=== PATIENT | female | born 1955 | race Caucasian/White ===

== ENCOUNTER → 2016-07-27 | Outpatient (CLI) | payer OTHER ==
[~2016-07-27] VITALS: Ht 160 cm; Wt 64.4 kg
[~2016-07-27] MED LIST: ASPI81TA85 PO; CALCTAB7 PO; D-101000 PO; FISH100049 PO; GLUC1CAP10 PO; LEVO125T3 PO; LOVA20TA2 PO; MULT1TAB18 PO; NS 1,000 ML IV ONE; PHEN1TAB26 PO; PROPOFOL 200 MG/20 ML VIAL As Ordered ONE
--- NOTE | 2016-07-27 10:51 | ROOR ---
Patient Name: Soniya Griffin Procedure Date: 07/27/2016 10:31 AM Date of : 1955 Age: 60 Room: [facility] Gender: Female Note Status: Finalized Procedure: Colonoscopy Indications: Screening in patient at increased risk: Colorectal cancer in father 60 or older Providers: Scooter KAHN MD Referring MD: DONNA ROBLES Requesting Provider: Medicines: Monitored Anesthesia Care Complications: No immediate complications. Procedure: Pre-Anesthesia Assessment: - The heart rate, respiratory rate, oxygen saturations, blood pressure, adequacy of pulmonary ventilation, and response to care were monitored throughout the procedure. The Colonoscope was introduced through the anus and advanced to the terminal ileum, with identification of the appendiceal orifice and IC valve. The colonoscopy was performed without difficulty. The patient tolerated the procedure well. The quality of the bowel preparation was good. Findings: The perianal and digital rectal examinations were normal. (Exam: Complete, Prep: Good or Excellent.) A diminutive polyp was found in the hepatic flexure. The polyp was sessile. The polyp was removed with a jumbo cold forceps. Resection and retrieval were complete. Multiple medium-mouthed diverticula were found in the left colon and right colon. The exam was otherwise without abnormality on direct and retroflexion views. Impression: - One diminutive polyp at the hepatic flexure, removed with a jumbo cold forceps. Resected and retrieved. - Mild diverticulosis. - The examination was otherwise normal on direct and retroflexion views. Recommendation: - Repeat colonoscopy in 5 years for surveillance. Scooter Kahn MD Scooter KAHN MD 07/27/2016 10:50:54 AM This report has been signed electronically. Number of Addenda: 0 Note Initiated On: 07/27/2016 10:31 AM Estimated Blood Loss: Estimated blood loss: none.
[2016-07-27 11:10] VITALS: BP 105/63
== END ==
LOC: M OPP 09:10
PROVIDERS: ATTEND Internal Medicine Gastroenterology
DX: Z12.11 Encounter for screening for malignant neoplasm of colon (principal); Z80.0 Family history of malignant neoplasm of digestive organs; D12.3 Benign neoplasm of transverse colon; K57.30 Diverticulosis of large intestine without perforation or abscess without bleeding; G40.909 Epilepsy, unspecified, not intractable, without status epilepticus; E03.9 Hypothyroidism, unspecified; H91.91 Unspecified hearing loss, right ear; Z79.82 Long term (current) use of aspirin; Z79.899 Other long term (current) drug therapy; Z88.8 Allergy status to other drugs, medicaments and biological substances; Z88.2 Allergy status to sulfonamides

== ENCOUNTER → 2016-11-16 | Outpatient (REF) | payer OTHER ==
[~2016-11-16] MED LIST changes: -LEVO125T3 PO; +LEVO125T4 PO; -NS 1,000 ML IV ONE; -PROPOFOL 200 MG/20 ML VIAL As Ordered ONE
== END ==
LOC: M SFHCWAGY 09:10
PROVIDERS: ATTEND Nurse Practitioner Women's Health
DX: Z12.4 Encounter for screening for malignant neoplasm of cervix (principal)

== ENCOUNTER → 2016-11-16 | Outpatient (CLI) | payer OTHER ==
--- NOTE | 2016-11-16 09:31 | REPMRS ---
Patient History The patient states she had a clinical breast exam in 11/22 Patient is postmenopausal and had first child at age 29. Family history of colorectal cancer in father at age 50 or over and prostate cancer in father at age 50 or over. Digital Woman Screen Mammo: November 16, 2016 - Exam #: [id number] Bilateral CC and MLO view(s) were taken. Technologist: Gianna Das, Technologist Prior study comparison: November 05, 2015, digital woman screen mammo performed at [facility]. November 01, 2014, digital woman screen mammo performed at [facility]. October 30, 2013, digital woman screen mammo performed at [facility]. FINDINGS: There are scattered fibroglandular densities. There has been no change in the appearance of the mammogram from the prior studies. There is a mild amount of scattered fibroglandular density which is fairly symmetric. There is no interval development of dominant mass, architectural distortion, or clustered microcalcification suggestive of malignancy. ASSESSMENT: BI-RADS/ACR category 1 mammogram. Negative. Recommendation Routine screening mammogram in 1 year (for women over age 40). This mammogram was interpreted with the aid of an FDA-approved computer-aided dectection system. Electronically Signed By: Jerome Lund MD 11/16/16 3168
== END ==
LOC: M WHC 08:01
PROVIDERS: ATTEND Nurse Practitioner Women's Health
DX: Z12.31 Encounter for screening mammogram for malignant neoplasm of breast (principal); Z80.0 Family history of malignant neoplasm of digestive organs; Z78.0 Asymptomatic menopausal state

== ENCOUNTER → 2017-11-17 | Outpatient (REF) | payer OTHER ==
[2017-11-19 14:14] LABS: HPV HYBRID CAPTURE II Negative (Negative)
== END ==
LOC: M SFHCWAGY 09:39
DX: Z12.4 Encounter for screening for malignant neoplasm of cervix (principal)

== ENCOUNTER → 2017-11-17 | Outpatient (CLI) | payer OTHER | LOC: M WHC 08:52 | DX: Z12.31 Encounter for screening mammogram for malignant neoplasm of breast (principal); M85.80 Other specified disorders of bone density and structure, unspecified site ==

== ENCOUNTER → 2018-11-18 | Outpatient (CLI) | payer OTHER ==
--- NOTE | 2018-11-18 10:24 | REPMRS ---
Patient History The patient states she had a clinical breast exam in 11/2018. Patient is postmenopausal and had first child at age 29. Family history of colorectal cancer at age 50 or over and prostate cancer at age 50 or over in father. No Hormone Replacement Therapy 3D TOMOSYNTHESIS WAS PERFORMED. [facility] lifetime risk for breast cancer is 8.0%. Digital Woman Screen Mammo: November 18, 2018 - Exam #: [id number] Bilateral CC and MLO view(s) were taken. Technologist: Melody Green, Technologist Prior study comparison: November 17, 2017, bilateral digital woman screen mammo performed at [facility]. November 16, 2016, digital woman screen mammo performed at [facility]. FINDINGS: There are scattered fibroglandular densities. There has been no change in the appearance of the mammogram from the prior studies. There is a mild amount of residual fibroglandular tissue which is fairly symmetric. There is no interval development of dominant mass, architectural distortion, or clustered microcalcification suggestive of malignancy. Assessment: BI-RADS/ACR category 1 mammogram. Negative Mammogram. Recommendation Routine screening mammogram in 1 year (for women over age 40). This mammogram was interpreted with the aid of an FDA-approved computer-aided dectection system. Electronically Signed By: Feroz Matthews MD 11/18/18 1024
== END ==
LOC: M WHC 09:30
PROVIDERS: ATTEND Nurse Practitioner Women's Health
DX: Z12.31 Encounter for screening mammogram for malignant neoplasm of breast (principal); Z78.0 Asymptomatic menopausal state; Z80.0 Family history of malignant neoplasm of digestive organs

== ENCOUNTER → 2019-11-24 | Outpatient (CLI) | payer OTHER ==
[~2019-11-24] MED LIST changes: -ASPI81TA85 PO; +ASPI81TA86 PO; +CALC-211 PO; -CALCTAB7 PO
--- NOTE | 2019-11-24 09:19 | REPMRS ---
Patient History The patient states she had a clinical breast exam in November 2019.Family history of colorectal cancer at age 50 or over and prostate cancer at age 50 or over in father. No Hormone Replacement Therapy Digital Woman Screen Mammo: November 24, 2019 - Exam #: [id number] Bilateral CC and MLO view(s) were taken. Technologist: Gilda Bolton, Technologist Prior study comparison: November 18, 2018, bilateral digital woman screen mammo performed at [facility]. November 17, 2017, bilateral digital woman screen mammo performed at [facility]. November 16, 2016, digital woman screen mammo performed at [facility]. FINDINGS: The breast tissue is almost entirely fat. The [employer] volumetric breast density category is: A. There has been no change in the appearance of the mammogram from the prior studies. There is no interval development of dominant mass, architectural distortion, or grouped microcalcification typical of malignancy. 3-D tomosynthesis shows no additional findings. Assessment: BI-RADS/ACR category 1 mammogram. Negative Mammogram. Recommendation Routine screening mammogram of both breasts in 1 year (for women over age 40). This patient's Lifetime Breast Cancer RIsk is estimated at 7.6 %. This mammogram was interpreted with the aid of an FDA-approved computer-aided dectection system. Electronically Signed By: Jerome Lund MD 11/24/19 0918
--- NOTE | 2019-12-01 15:49 | DEXA ---
AP SPINE L1 - L4 1.018 -1.4 0.2 LT FEMUR TOTAL 0.822 -1.5 -0.2 LT NECK 0.732 -2.2 -0.7 RT FEMUR TOTAL 0.754 -2.0 -0.8 RT NECK 0.663 -2.7 -1.2 TOTAL BODY TOTAL OTHER COMMENTS: There is low bone density of the spine and hips. There is low bone density of the left hip. There is osteoporosis of the right hip. The increased density of the spine does not represent a significant change. The decreased density of the left hip does represent a significant change. The decreased density of the right hip does represent a significant change. The density of the spine is increased 2.0% since the initial exam on 10/08/2009. The increased 0.6% since the most recent exam on 11/17/2017. The density of the left hip has decreased 7.1% since the initial exam on 10/08/2009. The density of the left hip has decreased 4.4% since the most recent exam on 11/17/2017. The density of the right hip has decreased 14.4% since the initial exam on 10/08/2009. The density of the right hip has decreased 8.3% since the most recent exam on 11/17/2017. FOLLOW-UP: Recommendation for the next bone density exam: 2 years. MIRTHA
== END ==
LOC: M WHC 08:07
PROVIDERS: ATTEND Nurse Practitioner Women's Health
DX: Z12.31 Encounter for screening mammogram for malignant neoplasm of breast (principal); Z80.0 Family history of malignant neoplasm of digestive organs; M85.852 Other specified disorders of bone density and structure, left thigh; M81.0 Age-related osteoporosis without current pathological fracture

== ENCOUNTER → 2020-05-22 | Outpatient (CLI) | payer OTHER ==
--- NOTE | 2020-05-22 20:04 | REP ---
INDICATION: BILATERAL KNEE PAIN. COMPARISON: 08/04/2019 right knee. TECHNIQUE: There are three views of each knee. FINDINGS: Right knee: There is joint space narrowing of the medial compartment with eburnation of the 0 posing cortical surfaces. The lateral compartment is unremarkable. There is osteophytic growth in the patellofemoral compartment superiorly. There is no joint effusion. Left knee: There is marked joint space narrowing of the medial compartment with eburnation of the opposing cortical surfaces. There is osteophytic growth at the patello femoral joint superiorly. There is no joint effusion. IMPRESSION: Right knee: The findings are compatible with osteoarthritis. There is no significant interval change. Left knee: The findings are compatible with osteoarthritis. <Electronically signed by Feroz Anderson > 05/22/201999
== END ==
LOC: M SOG 05-21 15:16
PROVIDERS: ATTEND Family Medicine
DX: M13.862 Other specified arthritis, left knee (principal)

== ENCOUNTER 2020-08-14 07:50 | Outpatient (RCR) | payer OTHER ==
[2020-08-14] MEDS ORDERED: ALEN35TA54 PO (13:55)
[2020-08-14] MEDS ORDERED: KP F1200 PO (13:55)
[2020-08-14] MEDS ORDERED: D31000CA4 PO (13:55)
[2020-08-14] MEDS ORDERED: COQ-100C5 PO (13:55)
[2020-08-14] MEDS ORDERED: ASPI81TA26 PO (13:55)
[2020-08-14] MEDS ORDERED: VITMTA PO (13:55)
[2020-08-14] MEDS ORDERED: curamin PO (13:57)
== END 2020-09-04 ==
LOC: M PT 07:50
PROVIDERS: ATTEND Orthopaedic Surgery Adult Reconstructive Orthopaedic Surgery
DX: M17.0 Bilateral primary osteoarthritis of knee (principal)

== ENCOUNTER → 2020-08-17 | Outpatient (CLI) | payer OTHER ==
[~2020-08-17] MED LIST changes: +ALEN35TA54 PO; +ASPI81TA26 PO; +COQ-100C5 PO; +D31000CA4 PO; +KP F1200 PO; +VITMTA PO; +curamin PO
--- NOTE | 2020-08-17 11:58 | REP ---
INDICATION: BILATERAL PRIMARY OSTEOARTHRITIS OF LEFT KNEE. COMPARISON: No comparison CT study. Comparison knee radiographs May 22, 2020.. TECHNIQUE: The study was acquired according to the parameters of the Targeted Growth CT acquisition protocol. Helical scanning is acquired. Axial and multiplanar re-formation coronal and sagittal images are included. Study protocol includes and acquisition of the hip, knee, and ankle on the left side. Acquisition protocol includes a placement of the motion bar as specified. FINDINGS: At the hip acquisition, there is tendon insertion site spurring at the greater trochanter and mild osteoarthritic spurring at the symphysis pubis. Left hip joint space is preserved. Alignment is felt to be normal. Head neck junction morphology is unremarkable. No bony destructive lesion is seen. Left knee acquisition images demonstrate moderate to advanced 3 compartment osteoarthritis at the left knee. There are large medial and lateral femoral condyle osteophytes. There is moderate osteoarthritic spurring in the patellofemoral compartment as well. There are reactive sclerotic changes and some flattening of the medial femoral condyle and medial tibial plateau. No bony destructive lesion is seen. There is subcortical cyst formation beneath the tibial spines. In addition, there is a well corticated marrow containing bone density in the soft tissues posterior and medial to the fibular head, posterior to the tibial plateau laterally. This measures 15 x 14 x 9 mm. This could conceivably be a loose body associated with a periarticular cyst. Lastly there is a fairly large Howard's cyst in the posteromedial popliteal soft tissues. A small suprapatellar joint effusion is noted. The ankle acquisition images show a small Achilles and a moderate-sized plantar calcaneal spur. There is subcortical cyst in the medial cuneiform. There is a small exostosis projecting laterally from the lateral surface of the anterior talus. Ankle mortise is intact. Minimal tibiotalar spurring is seen. IMPRESSION: Osteoarthritic changes as noted above. <Electronically signed by Jerome Lund > 08/17/20 1097
== END ==
LOC: M RAD 10:49
PROVIDERS: ATTEND Orthopaedic Surgery Adult Reconstructive Orthopaedic Surgery
DX: M17.2 Bilateral post-traumatic osteoarthritis of knee (principal)

== ENCOUNTER → 2020-08-21 | Outpatient (CLI) | payer OTHER | LOC: M LABSMTC 11:31 | PROVIDERS: ATTEND Anesthesiology | DX: Z01.818 Encounter for other preprocedural examination (principal); Z11.52 Encounter for screening for COVID-19 ==

== ENCOUNTER 2020-08-26 06:11 | Inpatient (IN) | payer OTHER, MEDICARE ==
[2020-08-26] VITALS (7 sets, daily range): BP systolic 93–106; BP diastolic 54–68
[~2020-08-26] VITALS: Ht 152.4 cm; Wt 68.0 kg
[~2020-08-26 06:11] MED LIST changes: +ACETAMINOPHEN 500 MG TAB PO ONE; +NAPROXEN 250 MG TAB PO ONE; +NS 1,000 ML IV ONE; +PREGABALIN 25 MG CAP (LYRICA) PO ONE; +TRANEXAMIC ACID INJection 1,000 MG in NS 50 ML IV ONE; +ceFAZolin SOD 2 GM in IV 1 EA IV ONE; +dexameTHASONE 4 MG/ML 1ML VIAL (J1100 PER 1MG) IV ONE
[2020-08-26] MEDS ORDERED: ROPIVA 125MG/EPINEPH 0.25MG/CLONID 40MCG/KETOR 15MG IN NS 50ML SYRINGE PA ONE (07:00)
[2020-08-26] MEDS ORDERED: MIDAZOLAM INJ 2MG/2ML VIAL (J2250 PER 1MG) As Ordered ONE (07:03)
[2020-08-26] MEDS ORDERED: fentaNYL 100 MCG/2 ML INJECTION (J3010) As Ordered ONE (07:04)
[2020-08-26] MEDS ORDERED: LIDOCAINE 2% 100MG/5ML SDV (FOR ANES.) As Ordered ONE (07:05)
[2020-08-26] MEDS ORDERED: ROCURONIUM BROMIDE 50 MG/5 ML VIAL As Ordered ONE (07:06)
[2020-08-26] MEDS ORDERED: TRANEXAMIC ACID 100 MG/ML 10ML VIAL As Ordered ONE ×2 (07:11→07:35)
[2020-08-26] MEDS ORDERED: LR 1,000 ML IV ONE (07:20)
[2020-08-26] MEDS ORDERED: PHENYLephrine 500MCG 5ML (100MCG/ML) SYRINGE As Ordered ONE ×2 (07:48→09:31)
[2020-08-26] MEDS ORDERED: ePHEDrine SULFATE 25 MG/5 ML(5MG/ML) SYRINGE As Ordered ONE (07:48)
[2020-08-26] MEDS ORDERED: propofoL 200 MG/20 ML VIAL As Ordered ONE (07:49)
[2020-08-26] MEDS: NAPROXEN 250 MG TAB PO SCH ×2 (09:00→21:02)
[2020-08-26] MEDS ORDERED: ONDANSETRON 4MG/2ML VIAL As Ordered ONE (09:05)
[2020-08-26] MEDS ORDERED: SUGAMMADEX SODIUM 500 MG/5 ML VIAL (BRIDION) As Ordered ONE (09:05)
[2020-08-26] MEDS ORDERED: HYDROmorphone HCL 2 MG/ML 1ML VIAL (J1170) As Ordered ONE (09:23)
[2020-08-26] MEDS ORDERED: METOCLOPRAMIDE INJ 10MG/2ML VIAL (J2765 PER 1) As Ordered ONE (09:24)
[2020-08-26] MEDS ORDERED: ONDANSETRON 4MG/2ML VIAL IV PRN ×2 (10:00→10:40)
[2020-08-26] MEDS ORDERED: oxyCODONE 5MG TAB PO PRN ×3 (10:00→10:45)
[2020-08-26] MEDS ORDERED: fentaNYL 100 MCG/2 ML INJECTION (J3010) IV PRN (10:00)
[2020-08-26] MEDS ORDERED: HYDROMORPHONE HCL 0.5 MG/ 0.5 ML SYRINGE (J1170 PER 1) IV PRN (10:00)
[2020-08-26] MEDS ORDERED: LR 1,000 ML IV SCH ×3 (10:00→16:45)
[2020-08-26] MEDS ORDERED: SENNA 8.6 MG TAB (SENOKOT) PO PRN (10:40)
[2020-08-26] MEDS ORDERED: traMADol 50 MG TAB PO PRN (10:40)
--- NOTE | 2020-08-26 10:50 | ROOPDOC ---
[facility] Report Of Operation Report of Operation DATE OF PROCEDURE: 08/26/20 PREPROCEDURE DIAGNOSES: Left knee osteoarthritis POSTPROCEDURE DIAGNOSES: Left knee osteoarthritis PROCEDURE: Alvaro left total knee [place] triathlon system Press-fit size 3 left femur, CR Press-fit tibial tray size 2 9 mm CS polyethylene 35mm press-fit patellar polyethylene component SURGEON: Misti Guerrero MD BATTERY CONTAINER TESTER ALUMINUM: JULIAN assist ANESTHESIA: GA ESTIMATED BLOOD LOSS: Approximately 150 mL. COMPLICATIONS: No known. REMARKS: Patient received 2 g of Ancef IV prior to surgery. Patient received 1 g of IV tranexamic acid, Prior to incision. PROCEDURE NOTE: Patient was seen in the preoperative area. She was found to be grossly neurovascular intact to the left foot and ankle. She denied any significant change in her past medical history. DESCRIPTION OF PROCEDURE: The patient was brought into the operating room and a surgical pause was carried out. She was then transferred to the operating room table and a general anesthetic was induced. After the general anesthetic was induced, the patient was appropriately positioned with appropriate padding. The operative lower extremity underwent a chlorhexidine brush followed by 2 times alcohol swab, followed by hydrogen peroxide White and then 2 times sterile chlorhexidine washes. A standard drape was sterilely applied. The [employer] leg holde r was attached to the bed in a sterile manner. The foot reinoso was also applied to the patient using a padded boot and Coban. The surgical safety checklist and pars was then carried out. 2 stab hole incisions were made over the anteromedial tibial crest, approximately 4 fingerbreadths below the tibial tubercle. The 2 tibial array pins were placed. An incision was made midline. This was carried down through skin and subcutaneous tissue. The medial arthrotomy was completed and joint fluid was suctioned. Bleeders were controlled with electrocautery. The knee joint was exposed with soft tissue releases as appropriate. The fat pad was excised with electrocautery. The medial femoral condylar array pins were placed. The tibial and femoral tracker pins were placed. The tibial and femoral arrays were placed. The range of motion of the hip center was completed followed by registration of the knee joint using the [employer] robotic system. Once registration was complete. Osteophytes were removed with a rongeur and it curved osteotome as needed. Soft tissue balancing using the [employer] robotic system was then carried out. The preoperative plan was adjusted as necessary. The Alvaro rule out was then brought in and appropriately registered. The cuts were made using the 90 blade, followed by cuts using the straight blade. The [facility] knee reinoso retractor system was utilized to protect the soft tissues and allow access to the knee joint during this procedure. Part. Once all the cuts had been appropriately made, the bone pieces were removed. The menisci were then removed. A curved osteotome was used to remove posterior osteophytes. With the help of a lamina rn ed for access. Tibial trials and femoral trials were then placed. The leg was brought into near extension. Using towel clips. The patella depth was measured, followed by a freehand cut using a sagittal saw. The depth of the remaining patella was measured again and was found to be in appropriate resection. A patellar clamp was applied with the appropriate sizing. This was reamed for a press-fit patella. The trial was placed and found to have good fit. The tibial tray was then secured in appropriate rotation and pinned. The keel punch was impacted. The 4. press-fit drill guide was placed and the guide was reamed for the 4 holes. The 2 CR lug holes were drilled. The knee was then taken through a range of motion and found to be stable. This w as confirmed with the [facility] Smart robotics program The components were removed and the ADENIKE local anesthetic was instilled in the standard fashion. The bone surfaces and the wound were then irrigated thoroughly. The press-fit tibial component was then impacted. Secondary impaction also occurred. The trial polyethylene was placed. A 9 mm thickness. The femoral component was then impacted in position. Knee was brought into extension and the tibial component was impacted using the tightening device. The knee was taken through a full stable range of motion. The 9 mm polyethylene trial was removed and a final 9 mm polyethylene component was impacted in position and found to be secure. The knee was taken through a full stable range of motion. She had a range of motion of approximately 1 up to 132 The tibial and femoral trackers and tibial and femoral arrays were then removed. The wound was thoroughly irrigated, followed by a Betadine and tranexamic acid soaks for 3 minutes. The wound was then irrigated and a closure of the arthrotomy was carried out with #1 Vicryl interrupted. #1, strata fix running. #1 interrupted sutures were used to close down the subcutaneous tissue. This was followed by running 2. 0 Vicryl and a running 3.0 antibacterial Monocryl. Irrigation with Betadine and normal sterile saline was carried out in between layers. The skin was closed finally with Steri-Strips and the 2 pin sites were closed with interrupted 3. 0 Monocryl. A Mepilex dressing was applied to both wound areas. The leg was co michele with ABDs pads across the dressing and then a large Benigno wrap was applied. The patient tolerated the procedure well with no known complications. Her anesthetic was reversed. She was taken to the recovery room in stable condition. Patient will be admitted and managed by the hospitalist service. Plan will be for discharge home tomorrow with OT, PT and nursing services. The patient will be seen by PT and hospital. MISTI GUERRERO MD Aug 26, 2020 10:50
--- NOTE | 2020-08-26 11:05 | REP ---
INDICATION: POST OP PACU COMPARISON: No prior postoperative examinations for comparison TECHNIQUE: AP and cross-table lateral portable views FINDINGS: There has been total knee prosthetic device placement the tibial and femoral components of which are well seated and well approximated. The alignment is near anatomical. There is expected postoperative soft tissue swelling. IMPRESSION: Status post TKR <Electronically signed by Tye Larkin > 08/26/20 1102
[2020-08-26] MEDS: ACETAMINOPHEN TAB 650MG DOSE (2X325MG) PO SCH ×2 (12:00→16:58)
--- NOTE | 2020-08-26 14:59 | HPEPDOC ---
[facility] Medical History & Physical Date of Admission Aug 26, 2020 Date of Service: Aug 26, 2020 History and Physical Chief complaint: Who presented to [facility] for an elective R knee arthroplasty History of present illness: Patient is a 4-year-old female who presented to the hospital for an elective orthopedic procedure. Patient has received medical and cardiac clearance from her primary care provider Daniel Soto and Dr. Castano. Hospitalist service was consulted post operatively. Patient reports that as part of her cardiac workup. She had an EKG completed by cardiology that was negative. An echocardiogram that was relatively normal and has had a heart monitor placed for about 24 hours that was negative. Patient reports that she has not received a stress test. Currently patient denies any chest pain, shortness breath, palpitations, nausea, vomiting, abdominal pain, constipation, diarrhea, or urinary discomfort. She denies any recent fevers or chills. Reports her appetite is fairly normal and does not report any recent changes in. 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 Review of Systems: 10 point review of systems complete, all negative otherwise stated in HPI Physical exam: - Vitals: BP [99/63], HR [90], RR [15], Sat [91%RA], Temp [97.8F] - General: Lying in bed, No acute distress, Speaking in full sentences, AAOx3 - HEENT: NC, AT, PERRLA - CVS: RRR, +S1S2 - Lungs: Fair air entry bilaterally, No appreciable wheezing / rales / rhonchi - Abdomen: Soft, Non-distended, Non-tender - Extremities: No lower extremity edema, No calf tenderness, left knee in dressing - Neuro: No focal motor or sensory deficit - Skin: No visible rashes Labs: XR 08/26: Status post TKR Imaging: See below EKG: See below Assessment and Plan: Elective total left knee arthroplasty - Patient has received medical and cardiac clearance from her primary care provider and sales team leader as an outpatient - Pain control, anticoagulation and physical therapy at the direction of orthopedic surgery - Orthopedic surgery will remain on consultation Hypothyroidism - c/w Levothyroxine Seizure disorder - Patient reports that she has not had a seizure since 1976 and has not changed any of her medications since - c/w Phenobarbitol DLP - c/w Statin Osteoporosis - Patient is on alendronate as an outpatient will resume on discharge Low Vitamin D - will resume supplementation on discharge DVT prophylaxis - As per orthopedic surgery Vital Signs Vital Signs Date Time Temp Pulse Resp B/P (MAP) Pulse Ox O2 Delivery O2 Flow Rate FiO2 08/26/20 14:40 97.8 90 15 99/63 (75) 91 Room Air 08/26/20 10:17 10.0 Home Medications Scheduled Alendronate Sodium (Alendronate Sodium) 35 Mg Tablet, 35 MG PO QWEEK Aspirin (Aspirin EC) 81 Mg Tablet.dr, 81 MG PO DAILY Calcium Carbonate (Calcium) 600 Mg Tab, 600 MG PO BID Cholecalciferol (Vitamin D3) (Vitamin D3) 25 Mcg Capsule, 25 MCG PO DAILY Fish Oil/Dha/Epa (Fish Oil 1,200 mg Fish Oil) 1 Each Capsule, 1 CAP PO BID Gluc Rodriguez/Chondro Rodriguez A/Vit C/Mn (Glucosamine-Chondroitin Cap) 1 Cap Cap, 1 CAP PO BID Levothyroxine Sodium (Levothyroxine Sodium) 125 Mcg Tab, 125 MCG PO DAILY Lovastatin (Lovastatin) 20 Mg Tab, 20 MG PO DAILY Multivitamins (Thera M Plus Tablet) 1 Each Tablet, 1 TAB PO DAILY Phenobarbital (Phenobarbital) 97.2 Mg Tab, 1 TAB PO DAILY Ubidecarenone (Coq-10) 100 Mg Capsule, 100 MG PO DAILY [curamin] , 1 TAB PO TID Allergies Coded Allergies: Sulfa (Sulfonamide Antibiotics) (Verified Allergy, Intermediate, RASH, 08/23/20) phenytoin (Verified Allergy, Unknown, rash, 08/14/20) JAVI KOENIG MD Aug 26, 2020 14:59
[2020-08-26] MEDS: ceFAZolin SOD 2 GM in IV 1 EA IV SCH (16:58)
[2020-08-26] MEDS: DOCUSATE SODIUM 100MG CAPSULE PO SCH (21:01)
[2020-08-26] MEDS: ASPIRIN 81MG ENTERIC TABLET PO SCH (21:01)
[2020-08-27] MEDS: ACETAMINOPHEN TAB 650MG DOSE (2X325MG) PO SCH ×2 (00:46→05:42)
[2020-08-27] MEDS: ceFAZolin SOD 2 GM in IV 1 EA IV SCH (00:46)
[2020-08-27 02:00] VITALS: BP 93/56
[2020-08-27 05:43] VITALS: BP 103/60
[2020-08-27] MEDS ORDERED: LEVOTHYROXINE 125MCG TABLET (0.125MG) PO SCH (06:00)
[2020-08-27 08:23] LABS: BASO % 0.3 % (0.0-1.0); EOS # 0.1 10^3/uL (0.0-0.5); EOS % 0.7 % (0.0-3.0); HEMATOCRIT 31.9 % (36.0-47.0); HEMOGLOBIN 10.1 g/dl (12.0-15.5); LYMPH % 20.7 % (24.0-44.0); MEAN CORPUSCULAR HEMOGLOBIN 31.1 pg (27.0-33.0); MEAN CORPUSCULAR HGB CONC 31.7 g/dl (32.0-36.5); MEAN CORPUSCULAR VOLUME 98.2 fl (80.0-96.0); MONO # 0.6 10^3/uL (0.0-0.8); NEUTROPHILS # 6.9 10^3/uL (1.5-8.5); NEUTROPHILS % 72.1 % (36.0-66.0); PLATELET COUNT, AUTOMATED 199 10^3/uL (150-450); RED BLOOD COUNT 3.25 10^6/uL (4.00-5.40); WHITE BLOOD COUNT 9.6 10^3/uL (4.0-10.0)
[2020-08-27 08:40] LABS: BLOOD UREA NITROGEN 13 MG/DL (7-18); CALCIUM LEVEL 8.1 MG/DL (8.8-10.2); CARBON DIOXIDE LEVEL 26 MEQ/L (21-32); CHLORIDE LEVEL 111 MEQ/L (98-107); CREATININE FOR GFR 0.82 MG/DL (0.55-1.30); GLOMERULAR FILTRATION RATE > 60.0 (>45); GLUCOSE, FASTING 139 MG/DL (70-100); MAGNESIUM LEVEL 2.1 MG/DL (1.8-2.4); SODIUM LEVEL 144 MEQ/L (136-145)
[2020-08-27] MEDS: ASPIRIN 81MG ENTERIC TABLET PO SCH (08:52)
[2020-08-27] MEDS: DOCUSATE SODIUM 100MG CAPSULE PO SCH (08:52)
[2020-08-27] MEDS: NAPROXEN 250 MG TAB PO SCH (08:55)
[2020-08-27] MEDS ORDERED: PHENobarbitaL 30 MG TAB PO SCH (09:00)
[2020-08-27] MEDS ORDERED: ASCORBIC ACID 500 MG TAB PO SCH (09:00)
--- NOTE | 2020-08-27 09:36 | DSES ---
DISCHARGE SUMMARY DATE OF ADMISSION: 08/26/2020 DATE OF DISCHARGE: 08/27/2020 BRIEF HISTORY: Soniya is seen today after a right total knee arthroplasty. The patient's blood pressure was reportedly "low" but she says that when they took her blood pressure in her right arm it was normal. She has 103/60 listed on her vital signs. She has no dizziness or shortness of breath, chest pain, or weakness. PHYSICAL EXAM: Vital signs as listed. Lungs are clear. Heart regular rate and rhythm. Abdomen is soft and nontender. No peripheral edema. LABS: Labs today look unremarkable. IMPRESSION AND PLAN: She should be stable for discharge if she passes physical therapy. She will resume her home medicines which are: 1. Alendronate 35 mg weekly. 2. Aspirin 81 mg daily. 3. Vitamin D 25 mcg daily. 4. Glucosamine. 5. Fish oil. 6. Levothyroxine 125 mcg daily. 7. Lovastatin 20 mg daily. 8. Multivitamin. 9. Phenobarbital one tablet daily. 10. Co-enzyme Q10. 11. Calcium. 12. Anticoagulation as per Orthopedics. Follow up with primary care provider in a week. Activity as tolerated. Regular diet advised.
--- NOTE | 2020-08-27 10:18 | IPNPDOC ---
Text Note Date of Service The patient was seen on 08/27/20. NOTE Patient was seen postop day 1 for left total knee arthroplasty Patient states that they are doing quite well. They have not had any issues overnight and the pain was well controlled. She denies any chest pain or shortness of breath. She has been mobilizing to the bathroom. She states that the leg feels heavy and she is having some thigh pain which is typical. On examination, the bulky dressing was taken down. The Mepilex dressing is in position with no signs of bleeding or staining of the dressing. The patient's left foot and ankle is grossly neurovascularly intact. She has a palpable posterior tibial pulse. X-ray imaging: X-ray imaging was independently ordered and reviewed by myself. This imaging was taken in PACU. The left total knee arthroplasty prosthesis appeared to be in good position without any obvious signs of complication or otherwise. Overall the patient is doing quite well. She will be working with physical therapy this morning with plans for discharge home when able. Discharge Instructions Total Knee Arthroplasty 1. Pain: You may take oxycodone as prescribed for pain. Supplement with anti- inflammatories and Tylenol as needed. Ice pack to operative knee as tolerated. 2. Wound care: Remove dressing on postop day 7. Call [phone] with any questions or concerns. Hygiene: The patient may shower. No tub baths. Check dressing seal prior to bathing. 3. Activity: WBAT on the left lower extremity. Front wheeled walker versus crut ches for ambulation. Fall precautions. 4. Driving: No driving until cleared by your surgeon. Do not drive if taking narcotic pain medications as these may make you drowsy. 5. DVT Prophylaxis: Continue taking ASA 81 mg p.o. twice daily as prescribed for the prevention of blood clots. Ankle pumps every 1 hour while awake. RAGHAV hose at all times for 1 month after surgery. May remove for hygiene and wound care. 6. Placement: Plan is to discharge patient to home with home health including nursing and physical therapy. 7. Surgeon Follow-up: The patient is scheduled to be seen in Dr. Guerrero's office 2 weeks post op with xrays. 8. Primary care Follow-up: Please see your primary care provider in the next 2 to 5 weeks for general medical re-evaluation and medication review. 9. Labs: CBC without differential and BMP to be drawn on 3 with results to PCP and please fax to [phone]. 10. Please contact [facility] if you have any questions or concerns at [phone]. VS,Fishbone, I+O VS, Fishbone, I+O Laboratory Tests 08/27/20 07:58 Vital Signs Date Time Temp Pulse Resp B/P (MAP) Pulse Ox O2 Delivery O2 Flow Rate FiO2 08/27/20 05:43 97.8 68 16 103/60 (74) 94 Room Air 08/26/20 10:17 10.0 I&O- Last 24 Hours up to 6 AM 08/27/20 05:59 Intake Total 4465 ml Output Total 2450 ml Balance 2014 ml MISTI GUERRERO MD Aug 27, 2020 10:18
[2020-08-27] MEDS ORDERED: SIMVASTATIN 20 MG TAB PO SCH (21:00)
== END 2020-08-27 11:35 | disposition home health service (06) | DRG 470 ==
LOC: M SDC 06:11 → M MS5PR 12:27 → M SDC 13:00 → M MS5PR 08-27 11:35 → M SDC 08-27 11:35
PROVIDERS: ADMIT Internal Medicine; ATTEND Orthopaedic Surgery Adult Reconstructive Orthopaedic Surgery
PROC: 0SRD0JZ Replacement of Left Knee Joint with Synthetic Substitute, Open Approach (ICD-10-PCS; principal; 2020-08-26 07:30)
DX: M17.12 Unilateral primary osteoarthritis, left knee (principal); E03.9 Hypothyroidism, unspecified; G40.909 Epilepsy, unspecified, not intractable, without status epilepticus; E78.5 Hyperlipidemia, unspecified; M81.0 Age-related osteoporosis without current pathological fracture; E55.9 Vitamin D deficiency, unspecified; Z79.82 Long term (current) use of aspirin; Z79.899 Other long term (current) drug therapy; Z88.2 Allergy status to sulfonamides; Z88.8 Allergy status to other drugs, medicaments and biological substances

== ENCOUNTER → 2020-09-11 | Outpatient (CLI) | payer OTHER, MEDICARE ==
[~2020-09-11] MED LIST changes: -ACETAMINOPHEN 500 MG TAB PO ONE; -NAPROXEN 250 MG TAB PO ONE; -NS 1,000 ML IV ONE; -PREGABALIN 25 MG CAP (LYRICA) PO ONE; -TRANEXAMIC ACID INJection 1,000 MG in NS 50 ML IV ONE; -ceFAZolin SOD 2 GM in IV 1 EA IV ONE; -dexameTHASONE 4 MG/ML 1ML VIAL (J1100 PER 1MG) IV ONE
--- NOTE | 2020-09-11 10:31 | REP ---
INDICATION: POST SURGICAL AFTERCARE. COMPARISON: 08/26/2020 TECHNIQUE: AP, lateral, sunrise views of the left knee. FINDINGS: Normal appearance to the knee replacement hardware. No evidence for acute fracture or dislocation. Surrounding soft tissues are grossly unremarkable. IMPRESSION: Normal post replacement left knee radiographs. <Electronically signed by Jermaine Brice > 09/11/20 102
== END ==
LOC: M SOG 08:59
PROVIDERS: ATTEND Orthopaedic Surgery Adult Reconstructive Orthopaedic Surgery
DX: Z48.89 Encounter for other specified surgical aftercare (principal)

== ENCOUNTER → 2020-11-27 | Outpatient (CLI) | payer OTHER ==
[~2020-11-27] MED LIST changes: -ALEN35TA54 PO; +ALEN35TA56 PO
--- NOTE | 2020-11-27 10:08 | REPMRS ---
Patient History The patient states she had a clinical breast exam in November 2020. Family history of colorectal cancer at age 50 or over and prostate cancer at age 50 or over in father. No Hormone Replacement Therapy Patient states no breast complaints today. Patient has signed MRS History Sheet. Digital Woman Screen Mammo: November 27, 2020 - Exam #: [id number] Bilateral CC and MLO view(s) were taken. Technologist: Gianna Das, Technologist Prior study comparison: November 24, 2019, bilateral digital woman screen mammo performed at [facility]. November 18, 2018, bilateral digital woman screen mammo performed at [facility]. FINDINGS: The breast tissue is almost entirely fat. Screening. Digital screening (2D) mammography was performed bilaterally in the CC and MLO projections. Additionally, breast tomosynthesis (3D mammography) was performed bilaterally in the CC and MLO projections. Todays exam was compared to the prior exam/exams. By history, the patient has no complaints of a palpable breast abnormality or other significant breast complaints. The breasts are unchanged in size and shape. There are no gavino-soft tissue densities or spiculated masses. There is no internal architectural distortion. There are no suspicious gavino-calcific clusters. Skin thickening or nipple retraction is not present. The Volpara volumetric breast density category is A, the breasts are almost entirely fatty. IMPRESSION: BI-RADS Category 2- Benign Findings. There is no evidence of malignant alteration of the breasts. Followup examination recommended in one year. This mammogram was read [facility],an FDA approved computer aided detection system for mammography. The lifetime Tyrer-Cuzick score is 7.2% Negative x-ray reports should not delay surgical consultation if a dominant or clinically suspicious mass is present. Not all breast cancers can be identified by mammography. Therefore, we recommend that you continue to perform regular breast self-examination and physical examination and then promptly contact your physician of any concerns or changes. Adenosis and dense breasts may obscure an underlying neoplasm. No significant changes when compared with prior studies. Assessment: BI-RADS/ACR category 2 mammogram. Benign Findings. Recommendation Routine screening mammogram of both breasts in 1 year. Electronically Signed By: Michael Walker MD 11/27/20 1007
== END ==
LOC: M WHC 08:42
PROVIDERS: ATTEND Nurse Practitioner Women's Health
DX: Z12.31 Encounter for screening mammogram for malignant neoplasm of breast (principal)

== ENCOUNTER → 2021-12-01 | Outpatient (CLI) | payer MEDICARE | LOC: M WHC 08:19 | PROVIDERS: ATTEND Nurse Practitioner Family | DX: Z12.31 Encounter for screening mammogram for malignant neoplasm of breast (principal); M81.0 Age-related osteoporosis without current pathological fracture ==

== ENCOUNTER → 2022-09-17 | Day surgery (SDC) | payer MEDICARE ==
[~2022-09-17] VITALS: Ht 152.4 cm; Wt 63.0 kg
[~2022-09-17] MED LIST changes: +ATOR1TAB21 PO; +LEVO137T2 PO; +LIDOCAINE 2% 100MG/5ML SDV (FOR ANES.) As Ordered ONE; +NS 1,000 ML IV ONE; +PHEN-312 PO; +propofoL 200 MG/20 ML VIAL As Ordered ONE
[2022-09-17 12:51] VITALS: BP 105/56; O2SAT 97
== END | disposition home or self-care (01) ==
LOC: M OPP 09:44
PROVIDERS: ATTEND Internal Medicine Gastroenterology
DX: Z86.010 Personal history of colon polyps (principal); Z80.0 Family history of malignant neoplasm of digestive organs; K64.8 Other hemorrhoids; K57.30 Diverticulosis of large intestine without perforation or abscess without bleeding; Z79.82 Long term (current) use of aspirin; Z79.83 Long term (current) use of bisphosphonates; Z79.890 Hormone replacement therapy; Z79.899 Other long term (current) drug therapy; Z88.2 Allergy status to sulfonamides; Z88.8 Allergy status to other drugs, medicaments and biological substances

== ENCOUNTER → 2023-04-28 | Outpatient (CLI) | payer MEDICARE ==
[~2023-04-28] MED LIST changes: -LIDOCAINE 2% 100MG/5ML SDV (FOR ANES.) As Ordered ONE; -NS 1,000 ML IV ONE; -propofoL 200 MG/20 ML VIAL As Ordered ONE
== END ==
LOC: M WHC 07:51
PROVIDERS: ATTEND Nurse Practitioner Family
DX: Z01.419 Encounter for gynecological examination (general) (routine) without abnormal findings (principal); Z12.31 Encounter for screening mammogram for malignant neoplasm of breast; Z12.39 Encounter for other screening for malignant neoplasm of breast; N95.1 Menopausal and female climacteric states; Z79.51 Long term (current) use of inhaled steroids; Z88.1 Allergy status to other antibiotic agents; Z88.2 Allergy status to sulfonamides; Z88.8 Allergy status to other drugs, medicaments and biological substances; Z80.42 Family history of malignant neoplasm of prostate; Z80.0 Family history of malignant neoplasm of digestive organs
CPT/HCPCS: 77063; 77067; G0101

== ENCOUNTER → 2024-05-19 | Outpatient (CLI) | payer MEDICARE | LOC: M WHC 09:45 | PROVIDERS: ATTEND Physician Assistant | DX: Z12.31 Encounter for screening mammogram for malignant neoplasm of breast (principal); M81.0 Age-related osteoporosis without current pathological fracture ==